=== PATIENT | male | born 2000 | race Caucasian/White ===

== ENCOUNTER 2023-04-04 10:25 | Day surgery (SDC) | payer SELFPAY ==
[2023-04-04 10:58] VITALS: BP 114/68; PULSE 68; RESP 16; TEMP 37; O2SAT 100; BMI 22.6
--- NOTE | 2023-04-04 11:13 | HP.PCM_ITS ---
History and Physical MR#: [id number] Acct: [id number] Name: CATHIE OVALLES Rep #: [id number] : 2000 Provider: Dr. Sarah Monterroso MD Age/Sex: 23/M Location: [facility] Status: Signed Intake Vital Signs 03/26/2315:08 Height 5 ft 7.5 in Weight: 146 lb 2 oz BMI 22.5 Body Surface Area 1.78 BP 121/77 H Blood Pressure Location Rt brachial Position Sitting Respiration 16 Pulse 65 Pulse Source Monitor Temp 98.2 F Temp Source Temporal Pulse Oximetry (%) 98 Oxygen Delivery Method room air Intake Visit Reasons: Consult-CYST EYE Geophysical Data Technician Required: No Accompanied by: None Is patient in pain?: No Allergies No Known Allergies Allergy (Unverified 03/26/23 15:02) Medications NK 11/19/19 [History Confirmed 03/26/23] PFSH Medical History (Updated 03/26/23 @ 15:[address] Sarah Monterroso MD) Alcohol abuse Anxiety and depression Surgical History (Updated 03/26/23 @ 15:00 by Kiana Rodriguez) No pertinent past surgical history Family History (Updated 03/26/23 @ 15:00 by Kiana Rodriguez) Other No pertinent family history Social History (Updated 03/26/23 @ 15:01 by Kiana Rodriguez) Smoking Status: Never smoker alcohol intake: current substance use type: does not use HPI Consult-CYST EYE Details: Patient with a bump beneath the left eye that has been there approximately 2 years. He believes it has changed in size. He has attempted to squeeze it without success. 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 Exam Const General: cooperative Nutritional Appearance: well nourished Orientation: alert [facility] Head: normal to inspection, normocephalic and atraumatic Ears: hearing grossly normal bilaterally Nose: external nose normal Face and sinus: normal facial exam and face symmetric Mouth: lip normal Other: Firm mobile nodular lesion just beneath the skin surface on the left lower eyelid. The overlying skin is intact. Eyes General: appearance normal, both eyes and all related structures Eyelids: eyelids normal Pupils: PERRL EOM: EOM intact bilaterally Neck Neck: normal visual inspection and no lymphadenopathy Chest Chest palpation & inspection: normal inspection of the chest Resp Effort & Inspection: normal respiratory effort Auscultation: clear to auscultation bilaterally Cardio Rate: regular rate Rhythm: regular rhythm Heart Sounds: S1 normal and S2 normal GI Inspection: normal to inspection Palpation: soft and nontender Skin General: no rashes or lesions noted Trauma: no lacerations or abrasions Neuro General: patient alert, patient awake and patient oriented x3 Cognition: normal cognition Speech: speech normal Motor: muscle tone normal throughout Sensory Exam: no sensory deficits noted Extrem General: normal to inspection and no pedal edema Psych Appearance: grossly normal Affect: normal affect Speech and Movement: speech and movement normal Attitude: cooperative Judgment: judgment good Coding Level of Care Code Off vis,new,level 3 Diagnoses Neoplasm of uncertain behavior of skin of face D48.5 Assessment and Plan (No Qualifiers) Assessment and Plan (1) Neoplasm of uncertain behavior of skin of face: Status: Acute Plan Lesion of left lower eyelid with history of growth. We will schedule excision under local anesthetic. Plan Details Additional Comments: The procedure of excision lesion of left lower eyelid was thoroughly reviewed with the patient including risks and alternatives of care. Informed consent was obtained. The patient will be scheduled for the procedure under [local] anesthesia.
[2023-04-04] MEDS: Povidone Iodine 30 ML Opthalmic Sol 1 DRP (11:30)
[2023-04-04] MEDS: Lidocaine 1% /Epi 1:100 9 ML, Sodium Bicarbonate 1 MEQ OPERA.SITE (11:35)
--- NOTE | 2023-04-04 11:53 | PCM.OPRPT ---
Problems Associated Problem List Diagnoses (1) Neoplasm of uncertain behavior of skin of face: Report of Operation Date of Procedure: 04/04/23 Pre-Operative Diagnosis: Lesion of left lower eyelid area of uncertain behavior Post-Operative Diagnosis: Same Surgery/Procedure Performed:: Excision lesion left lower eyelid area (1.5 cm) Surgeon: Sarah Monterroso Type of Anesthesia: Local Specimen's removed: Lesion Estimated Blood Loss (mL): Minimal Description of Procedure: The patient was brought to the operating room and placed on the operating room table in a supine position. The face is prepped and draped in the usual sterile fashion. 1% Xylocaine with epinephrine is used to inject the periphery of the site using a fine gauge needle and a small syringe to minimize excess instillation. An elliptical incision is made over top of the mass and carried down through the subcutaneous tissue. Hemostasis is controlled with cautery. The incision is then closed with a running plain gut suture. Dermabond and Steri-Strips are placed on the site. He tolerated the procedure well and was taken to the recovery area in an awake and stable condition. Needle and sponge counts are correct. Complications None Admit VTE Documentation Reason prophylaxis not ordered:: Treatment Not Indicated
--- NOTE | 2023-04-04 12:00 | LES_PTH ---
PATIENT: CATHIE OVALLES [place] [facility] [place][id number] AGE/SX: 23/M ROOM: RE04/04/[address]: Dr. Sarah Monterroso MD : 2000 BED: DIS: 04/04/2023 SPEC #: [id number] RECD: 04/04/23 14:06 STATUS: RUBEN ANNA #: [id number] BABS: 04/04/23 12:[address]: Sarah Monterroso DEPT: SURGICAL PATHOLOGY RECD BY: Tanya Hilario Tissues: Skin of eyelid, NOS Procedures: Surgery Specimen Level III HEADER OPERATION: Excision subcutaneous lesion left lower eyelid PRE-OP DIAGNOSIS: Subcutaneous lesion left lower eyelid TISSUE SUBMITTED: Subcutaneous lesion left lower eyelid MICROSCOPIC DIAGNOSIS Lesion of left lower eyelid, biopsy: Epidermal inclusion cyst. AM/am 04/08/23 MICROSCOPIC DESCRIPTION Slides are reviewed. GROSS DESCRIPTION Received is one container labeled with the patient name and designated subcutaneous lesion left lower eyelid. The specimen consists of one piece of saucedo white skin with underlying cyst that measures 07 x 0.4 x 0.5 cm. The specimen is inked, serially sectioned and reveal a cyst filled with the white cheesy material. The entire specimen is submitted in one cassette. SJ: 04/07/23 TC:5 CPT:29697
--- NOTE | 2023-04-04 12:01 | DCINST_ITS ---
Discharge Instructions Diet Discharge Diet: No restrictions Activity Additional Activity Instructions:: Keep back elevated (recliner position) for the next 3 nights Dressing / Incision Remove Dressing in: leave until fall off Cleanse incision/area with: Keep Dressing Clean & Dry Follow Up Care Please Follow Up With: Sarah Monterroso MD When: 1 week Test Results: Test results from this visit will be discussed in further detail at your follow- up appointment, if applicable. Discharge Plan Admission Attending Provider: Sarah Monterroso Discharge Orders/Prescriptions Prescriptions: No Action NK Disposition Disposition (needs filled in before D/C Order can be placed): Home, Self Care
[2023-04-04 12:13] VITALS: BP 114/68; BP 118/59; PULSE 66; RESP 16; TEMP 37.2; O2SAT 97
== END 2023-04-04 12:19 | disposition home or self-care (01) ==
LOC: SDC 10:35 → AC 10:36
PROVIDERS: Referring Provider Plastic Surgery; Visit Provider Plastic Surgery
PROC: (CPT 11442; principal; 2023-04-04 11:50)
DX: D48.5 Neoplasm of uncertain behavior of skin (principal); L72.0 Epidermal cyst
CPT/HCPCS: 11442; 88304; 88305